=== PATIENT | female | born 1950 | race American Indian/Alaskan Native ===

== ENCOUNTER 2019-04-28 11:58 | Outpatient (CLI) | payer MEDICARE, OTHER ==
--- NOTE | 2019-04-28 12:48 | XRay Report ---
CHEST 2 VIEWS INDICATION: CHRONIC COUGH. COMPARISON: none FINDINGS: Support devices: None. Heart: Within normal limits. Lungs: No acute air space or interstitial disease. Pleura: No significant pleural effusion. No pneumothorax. Additional findings: None. IMPRESSION: 1. No acute findings. Signer Name: Mayo Barajas MD Signed: 04/28/2019 12:44 PM Workstation Name: [id number]
== END 2019-04-28 11:59 | disposition home or self-care (01) ==
LOC: SPVIMAG 11:58
PROVIDERS: ATTEND Internal Medicine
DX: R05 Cough (principal)
CPT/HCPCS: 71046